=== PATIENT | female | born 1955 | race Caucasian/White ===

== ENCOUNTER → 2024-10-15 | Outpatient (CLI) | payer MEDICARE, BC ==
[2024-10-15 20:14] LABS: Anion Gap 16.30 mmol/L (4.00-12.00); Blood Urea Nitrogen 12.3 mg/dL (9.0-27.0); Carbon Dioxide 22.7 mmol/L (21.6-31.8); Chloride 101 mmol/L (96-109); Potassium 4.4 mmol/L (3.5-5.5); Sodium 140 mmol/L (135-145)
[2024-10-16 02:11] LABS: Basophils # (A) 0.05 X 10*3/uL (0.00-0.10); Basophils % (A) 0.6 %; Eosinophils # (A) 0.24 X 10*3/uL (0.04-0.35); Eosinophils % (A) 3.0 %; HCT 41.9 % (37.2-46.3); HGB 12.6 g/dL (12.0-15.0); Immature Grans, Automated 0.20 %; Lymphocytes # (A) 1.33 X 10*3/uL (0.90-5.00); Lymphocytes % (A) 16.6 %; MCH 26.1 pg (27.0-32.0); MCHC 30.1 g/dL (32.0-37.0); MCV 86.7 FL (80.0-97.0); Monocytes # (A) 0.71 X 10*3/uL (0.20-1.00); Monocytes % (A) 8.9 %; NRBC Per 100 WBC 0 X 10*3/uL (0.00-0.01); Neutrophils # (A) 5.66 X 10*3/uL (1.80-7.70); Neutrophils % (A) 70.7 %; Platelet Count 322 X 10*3/uL (140-440); RBC 4.83 X 10*6/uL (4.10-5.20); RDW 14.1 % (11.5-14.5); WBC 8.01 X 10*3/uL (4.50-10.00)
== END | disposition home or self-care (01) ==
LOC: LABWHC1 13:16
PROVIDERS: ATTEND Obstetrics & Gynecology
DX: Z01.818 Encounter for other preprocedural examination (principal); N81.4 Uterovaginal prolapse, unspecified
CPT/HCPCS: 36415; 80051; 82565; 84520; 85025; 86850; 86900; 86901; 87086; 93005

== ENCOUNTER 2024-10-25 05:38 | Day surgery (SDC) | payer MEDICARE, BC ==
[2024-10-16 11:13] VITALS: BMI 27.9
[2024-10-25] MEDS: IV FLUID CONTINUATION 1,000 ML IV ONE (06:21)
[2024-10-25] MEDS: ONDANSETRON 4 MG/2 ML VIAL IVP ONE (06:41)
[2024-10-25] MEDS: LACTATED RINGERS 1,000 ML IV SCH (06:42)
[2024-10-25] MEDS: DEXAMETHASONE SOD PHOSPHATE 4 MG/ML 1 ML VIAL IV ONE (06:42)
[2024-10-25] MEDS ORDERED: fentaNYL (PF) 50 MCG/ML 2 ML AMP IV PRN (07:00)
[2024-10-25] MEDS ORDERED: MIDAZOLAM 2 MG/2 ML VIAL IV PRN (07:00)
[2024-10-25] MEDS ORDERED: MIDAZOLAM 2 MG/2 ML VIAL ONE (07:24)
[2024-10-25] MEDS ORDERED: KETOROLAC 15 MG/ML 1 ML VIAL ONE (07:24)
[2024-10-25] MEDS ORDERED: fentaNYL (PF) 50 MCG/ML 2 ML AMP ONE (07:24)
[2024-10-25] MEDS ORDERED: ACETAMINOPHEN IV (For NPO) 1,000 MG/100 ML VIAL ONE (07:24)
[2024-10-25] MEDS ORDERED: NEOSTIGMINE 1 MG/ML 10 ML VIAL ONE (07:24)
[2024-10-25] MEDS ORDERED: SUCCINYLCHOLINE CHLORIDE 200 MG/10 ML VIAL IV ONE (07:24)
[2024-10-25] MEDS ORDERED: ROCURONIUM 10 MG/ML (5 ML VIAL) IV ONE (07:24)
[2024-10-25] MEDS ORDERED: PROPOFOL 10 MG/ML 20 ML VIAL IV ONE (07:24)
[2024-10-25] MEDS ORDERED: LIDOCAINE 1% INJ 10MG/ML (20 ML MDV) ONE (07:24)
[2024-10-25] MEDS ORDERED: GLYCOPYRROLATE 0.2 MG/ML 2 ML VIAL ONE (07:24)
[2024-10-25] MEDS ORDERED: ePHEDrine 50 MG/ML 1 ML VIAL ONE (07:24)
[2024-10-25] MEDS: VASOPRESSIN 20 UNIT/ML 1 ML VIAL IM ONE (07:56)
[2024-10-25] MEDS: ESTRADIOL 0.1 MG/GM VAGINAL CREAM 42.5 GM TUBE VAGINAL ONE (07:56)
[2024-10-25] MEDS: LACTATED RINGERS 1,000 ML IV ONE (08:47)
[2024-10-25] MEDS ORDERED: IBUPROFEN 600 MG TAB PO PRN (10:56)
--- NOTE | 2024-10-25 11:07 | P.OP ---
Date of Procedure: 10/25/24 Preoperative Diagnosis: 1. Grade 3 Cystocele 2. Grade 2 Uterovaginal prolapse Postoperative Diagnosis: Same Procedure(s) Performed: Total Vaginal Hysterectomy, Anterior Repair Implants: None Anesthesia: local Surgeon: Susana Araujo Roll Plugger Machine Operator #1: Danny Woods Estimated Blood Loss (ml): 25 IV fluids (ml): 900 Urine output (ml): 220 (clear yellow) Pathology: other (uterus and cervix) Indications for Procedure: Ms. Mckeon is a 69 year old female with pelvic organ prolapse presenting for definitive management with TVH, anterior repair. Risks, benefits, and alternatives are discussed with the patient including risk of bleeding, infection, damage to surrounding structures, and post-operative VTE. The patient understands these risks and desires to proceed with surgery as discussed. All questions are answered. Operative Findings: Normal appearing uterus. Fallopian tubes unable to be visualized or palpated, ovaries atrophic and high in the pelvis so unable to safely remove vaginally. Description of Procedure: Prior to the beginning of the procedure the team paused to verify the patient's identity, as well as the procedure to be performed and the correct side/site. All equipment required was ready and available. The patient was positioned appropriately. Patient was cleaned and draped and legs were placed in lithotomy position using Michi stirrups. Sarabia catheter was placed to drain the bladder. A weighted speculum was placed in the posterior vaginal vault. The cervix was grasped with a double-tooth tenaculum. Vasopressin was injected circumstantially around the cervix. With downward traction, a circumferential incision was made along the vaginal mucosa overlying the reflection. This allowed dissection and entrance into the posterior cul-de-sac. An 0-Vicryl suture was placed to tag the posterior peritoneum. At this time, the uterosacral ligaments were visualized. These were clamped and ligated with 0-Vicryl suture. The uterosacral ligaments were held bilaterally. The cervicovesical space was then created by both blunt and sharp dissection allowing the cardinal ligaments to be visualized. These were clamped and ligated with 0-Vicryl suture as well. Once in the cervicovesical space the uterosacral-cardinal ligament complex was completely ligated with 0-Vicryl suture. The uterine arteries were clamped and ligated with 0-Vicryl suture. The mane clamps were moved sequentially upward on the uterus until a small adnexal pedicle remained. The anterior cul-de-sac was now entered bluntly. The uterus was inverted and the pedicles were cut. The uterine specimen was delivered and sent for pathology. Bilateral fallopian tubes were grapsed, ligated with a [id number] stitch, and cut. Bilateral uteroovarian ligaments were doubly ligated first with a transfixing 0-Vicryl suture and then reinforced with a free 0-Vicryl tie in the usual fashion. The large weighted speculum was removed and replaced with the small weighted speculum. The peritoneal layer was closed with the 0-Vicryl suture in a purse-string fashion. A modified Posada Culdoplasty was performed with the uterosacral ligaments held by pieces of 0- Vicryl. The vaginal cuff inferior and superior to the level of the Posada Culdoplasty was closed with 0-Vicryl suture in a running fashion. Attention was then turned to the anterior repair portion of the procedure. Two Allis Clamps were used to grasp the vaginal mucosa along the vaginal cuff and Pitressin was injected inferior to the vaginal epithelium as a means for hydro- dissection. A horizontal incision was made in between the Allis clamps with the scalpel. A vertical midline incision was then made with Metzenbaum scissors from the level of the cuff to 1 cm inferior to the urethra. The underlying endopelvic fascia and cystocele was then dissected away from the vaginal epithelium using Metzenbaum scissors and allis clamps for retraction. The dissection was carried out to the lateral pelvic side wall on either side. 2-0 Vicryl was placed to approximate the endopelvic fascia over the cystocele, thus reducing it. Excess vaginal musosa was trimmed and the remaining vaginal mucosa was closed with 2-0 Vicryl suture. After completion of the case, a sarabia catheter was inserted and noted to move freely into the urethra without tension. Clear urine was noted to drain from the catheter. Excellent hemostasis was noted at the end of the case. The vagina was packed with 1-inch iodoform packing coated in vaginal estrace cream. All instruments were removed from the patient. She was cleaned, dried, and awakened from anesthesia without difficulty. Sponge, lap, instrument, and needle counts were correct x2. She was taken to the PACU in stable condition. A physician assistant unit forester was utilized for the entire procedure due to the need for tissue retraction, dissection of vital structures, prevention and management of blood loss, and reduction in overall operative and anesthesia time as is the standard of care.
[2024-10-25 18:38] VITALS: RESP 18
[2024-10-25] MEDS: IBUPROFEN 800 MG TAB PO SCH (21:39)
[2024-10-25] MEDS: ACETAMINOPHEN TAB 325 MG TAB PO PRN (23:52)
[2024-10-26] MEDS: ACETAMINOPHEN TAB 500 MG TAB PO SCH (00:01)
[2024-10-26 08:31] VITALS: BP 176/71; PULSE 70; TEMP 98.2
--- NOTE | 2024-10-26 12:45 | P.DS ---
Providers Date of admission: 10/25/2024 Expected date of discharge: 10/26/24 Attending physician: Susana Araujo MD Primary care physician: Helder Weber MD Hospital Course: 69 year old female POD#1 s/p TVH and anterior repair. The patient is doing well this morning and had no acute events overnight. She has no complaints this morning. She reports minimal vaginal spotting, passing flatus, voiding without difficulty, ambulating, and eating/drinking without nausea or vomiting. She denies chest pain, shortness of breathing, fevers, or chills overnight. She denies pain or swelling in the legs. Postoperative restrictions are reviewed with the patient including pelvic rest for 6 weeks, no lifting heavier than 15 pounds for 6 weeks. The patient is encouraged to call the office if she experiences any heavy bleeding, foul-smelling discharge, or any if she has any other concerns. She will follow up in the office with in 6 weeks for postoperative exam. All questions are answered. Patient Condition at Discharge: Good Plan - Discharge Summary Discharge Rx Participant: Yes New Discharge Prescriptions: New Ibuprofen [Motrin] 600 mg PO Q6HR PRN #30 tab PRN Reason: Mild Pain (Scale 1 To 3) No Action Cyanocobalamin (Vitamin B-12) [Vitamin B-12] 1,000 mcg PO DAILY Discharge Medication List Cyanocobalamin (Vitamin B-12) [Vitamin B-12] 1,000 mcg PO DAILY 10/16/24 [History] Ibuprofen [Motrin] 600 mg PO Q6HR PRN #30 tab 10/25/24 [Rx] Follow up Appointment(s)/Referral(s): Susana Araujo MD [STAFF PHYSICIAN] - 12/06/24 1:30 pm Patient Instructions/Handouts: *Surgery [facility] - (Anesthesia) Discharge Instructions Outpatient Surgery, Vaginal Hysterectomy (DC) Activity/Diet/Wound Care/Special Instructions: Postoperative Instructions 1. No heavy lifting or straining (exercising) until after 6 week checkup. 2. Do not resume sexual relations for 6 weeks or longer if uncomfortable. 3. Keep abdominal incision clean and dry: You may wear a dressing if more comfortable. 4. Call the office, , within the next week to make appointment for your 2 week checkup 5. Report any of the following occurrences to the doctor promptly: a. Heavy, excessive bleeding b. Chills, fever c. Burning or frequency of urination d. Pain or redness around the incisions Discharge Disposition: HOME SELF-CARE
== END 2024-10-26 11:19 | disposition home or self-care (01) ==
LOC: OR 05:38 → 4SSUR 08:46 → OR 10-26 11:19
PROVIDERS: ATTEND Obstetrics & Gynecology
CPT/HCPCS: 88307